=== PATIENT | male | born 1960 | race African-American/Black ===

== ENCOUNTER 2022-07-20 07:13 | Observation (INO) | payer OTHER ==
[2022-07-19 10:57] LABS: BASOPHILS % 0.4 % (0.0-1.0); EOSINOPHILS # (AUTO) 0.1 (0.0-0.4); EOSINOPHILS % 1.4 % (0.0-6.0); HEMATOCRIT 45.5 % (38.2-49.6); HEMOGLOBIN 14.9 g/dL (14.0-18.0); LYMPHOCYTES # (AUTO) 2.5 (1.0-3.2); LYMPHOCYTES % 34.2 % (18.0-39.1); MEAN CORPUSCULAR HGB CONC 32.7 g/dL (31-35); MEAN CORPUSCULAR VOLUME 94.6 fL (81-99); MONOCYTES # (AUTO) 0.7 (0.2-0.8); MONOCYTES % 8.9 % (4.4-11.3); PLATELET COUNT 187 x10e3/uL (140-360); RED BLOOD COUNT 4.81 x10e6/uL (4.3-5.7); RED CELL DISTRIBUTION WIDTH 13.2 % (11.7-14.4)
[~2022-07-20] VITALS: Ht 190.5 cm; Wt 110.2 kg
[~2022-07-20 07:13] MED LIST: CELECOXIB 200 MG CAP ONE; CRESTOR10 MG PO; DAILY VALUE1 EACH PO; DEXAMETHASONE SOD PHOS 10 MG/1 ML VIAL ONE; FLOMAX0.4 MG PO; GABAPENTIN 300 MG CAP ONE; VITAMIN E1000 UNI1 PO
[2022-07-20] MEDS ORDERED: ROPIVACAINE 246.25 MG, EPINEPHRINE HCL 1:1000 1ML 0.5 MG, CLONIDINE HCL 0.08 MG, KETORO... INJ ONE ×5 (08:00)
[2022-07-20] MEDS ORDERED: BUPIVACAINE LIPOSOME/PF 266 MG/20 ML IJ ONE (08:14)
[2022-07-20] MEDS ORDERED: Vancomycin IV 1,000 MG ONE (08:16)
[2022-07-20] MEDS ORDERED: TRANEXAMIC ACID 20 ML ONE (08:17)
[2022-07-20] MEDS ORDERED: SODIUM CHLORIDE 0.9% 500ML 500 ML ONE (08:21)
[2022-07-20] MEDS ORDERED: DOCUSATE SODIUM 100 MG CAP PO PRN (10:00)
[2022-07-20] MEDS ORDERED: HYDROCODONE/APAP 5MG-325MG TAB PO PRN (10:00)
[2022-07-20] MEDS ORDERED: DIPHENHYDRAMINE HCL INJ 50 MG/ML VIAL IV PRN (10:00)
[2022-07-20] MEDS ORDERED: ONDANSETRON HCL INJ 2MG/ML 2ML 2 MG/ML VIAL IV PRN (10:00)
[2022-07-20] MEDS ORDERED: SODIUM CHLORIDE 0.9% 1000ML 1,000 ML IV SCH (10:00)
[2022-07-20] MEDS ORDERED: FENTANYL CITRATE/PF 100MCG/2 ML INJ ONE ×2 (10:26→17:20)
[2022-07-20] MEDS ORDERED: HYDROMORPHONE 1MG/1ML INJ ONE (10:54)
[2022-07-20 12:02] VITALS: BP 145/88
[2022-07-20 12:14] VITALS: BP 145/88
[2022-07-20 12:59] VITALS: BP 145/88
[2022-07-20] MEDS ORDERED: POVIDONE IODINE 0.05% 0.05 % ML PO ONE (13:27)
[2022-07-20] MEDS ORDERED: SEVOFLURANE INHAL SOLN 250 ML PEN BTL ONE (13:27)
[2022-07-20] MEDS ORDERED: ONDANSETRON HCL INJ 2MG/ML 2ML 2 MG/ML VIAL ONE (13:27)
[2022-07-20] MEDS ORDERED: LIDOCAINE HCL 2% LOCAL INJ 5 ML SDV VIAL INJ ONE (13:27)
[2022-07-20] MEDS ORDERED: PROPOFOL IV EMULSION 10 MG/ML 20 ML VIAL ONE (13:27)
[2022-07-20 16:49] VITALS: BP 132/77
[2022-07-20] MEDS ORDERED: ASPIRIN 325 MG TAB PO SCH (17:00)
[2022-07-20] MEDS ORDERED: CELECOXIB 100 MG CAP PO SCH (17:00)
[2022-07-20] MEDS ORDERED: EPINEPHRINE HCL 1:1000 1ML 1 MG/ML AMP ONE (17:12)
[2022-07-20] MEDS ORDERED: BUPIVACAINE 0.25% 30ML SDV ONE (17:12)
[2022-07-20] MEDS ORDERED: MIDAZOLAM HCL 2 MG/2 ML VIAL ONE (17:20)
[2022-07-21] MEDS ORDERED: ACETAMINOPHEN 1000 MG/100 ML IV PRN (10:00)
== END 2022-07-20 17:17 | disposition home or self-care (01) ==
LOC: OR 07:13 → PACU V 09:54 → MED/SURG 11:40
PROVIDERS: ADMIT Specialist; ATTEND Specialist
DX: M17.12 Unilateral primary osteoarthritis, left knee (principal); N40.0 Benign prostatic hyperplasia without lower urinary tract symptoms; Z01.812 Encounter for preprocedural laboratory examination; Z20.822 Contact with and (suspected) exposure to COVID-19
CPT/HCPCS: 0223U; 27447; 36415; 73560; 85025; 86850; 86900; 86920; 94799; 97116; 97161; 97530; C1713; C9290; G0378; J0171; J0690; J1100; J1170; J1885; J2250; J2795; J3010; J3370; J7040; C1776; J2001; J2405